=== PATIENT | female | born 1940 | race Caucasian/White ===

== ENCOUNTER → 2017-06-12 | Outpatient (CLI) | payer OTHER, MEDICARE | LOC: FIMAGING 18:33 | DX: M47.816 Spondylosis without myelopathy or radiculopathy, lumbar region (principal); M47.817 Spondylosis without myelopathy or radiculopathy, lumbosacral region; M17.0 Bilateral primary osteoarthritis of knee; M46.96 Unspecified inflammatory spondylopathy, lumbar region ==

== ENCOUNTER → 2017-07-27 | Outpatient (CLI) | payer OTHER, MEDICARE | LOC: FIMAGING 09:33 | PROVIDERS: ATTEND Internal Medicine | DX: Z12.31 Encounter for screening mammogram for malignant neoplasm of breast (principal) | CPT/HCPCS: G0202 ==

== ENCOUNTER → 2018-01-04 | Outpatient (CLI) | payer OTHER, MEDICARE | LOC: FIMAGING 11:41 | PROVIDERS: ATTEND Orthopaedic Surgery | DX: M17.12 Unilateral primary osteoarthritis, left knee (principal); K57.30 Diverticulosis of large intestine without perforation or abscess without bleeding ==

== ENCOUNTER 2018-01-31 06:05 | Observation (INO) | payer OTHER, MEDICARE ==
[2018-01-31] MEDS ORDERED: ACETAMINOPHEN 325 MG TAB PO ONE (06:17)
[2018-01-31] MEDS ORDERED: DEXAMETHASONE 4 MG/ML VIAL IVP ONE (06:17)
[2018-01-31] MEDS ORDERED: FAMOTIDINE 20 MG TAB PO ONE (06:17)
[2018-01-31] MEDS ORDERED: ceFAZolin 2 GM/DEXTROSE 100 ML IV ONE (06:17)
[2018-01-31] MEDS ORDERED: LR 1,000 ML IV ONE (06:19)
[2018-01-31] MEDS ORDERED: LIDOCAINE 1% 2 ML INJ ID PRN (06:19)
[2018-01-31] MEDS ORDERED: TRANEXAMIC ACID 3,000 MG/50 ML BAG IRR ONE (07:47)
--- NOTE | 2018-01-31 07:54 | PDANEPAE ---
ANE History of Present Illness here for TKA ANE Past Medical History - Cardiovascular History Hx Hypertension: No Hx Arrhythmias: No Hx Chest Pain: No Hx Coronary Artery / Peripheral Vascular Disease: No Hx CHF / Valvular Disease: No Hx Palpitations: No - Pulmonary History Hx COPD: No Hx Asthma/Reactive Airway Disease: No Hx Recent Upper Respiratory Infection: No Hx Oxygen in Use at Home: No Hx Sleep Apnea: No Sleep Apnea Screening Result - Last Documented: Negative - Neurologic History Hx Cerebrovascular Accident: No Hx Seizures: No Hx Dementia: No - Endocrine History Hx Diabetes: Yes Endocrine History Comment: on Metformin- last A1C 7.0 - Renal History Hx Renal Disorders: Yes Renal History Comment: UTI-tx w/antibx. Urgency-plans to take Myrbetriq. - Liver History Hx Hepatic Disorders: No - Neurological & Psychiatric Hx Hx Neurological and Psychiatric Disorders: No - Cancer History Hx Cancer: No - Congenital Disorder History Hx Congenital Disorders: No - GI History Hx Gastrointestinal Disorders: No - Other Health History Other Health History: OA -bilat knees/ L knee more painful. diuretic for water retention - Chronic Pain History Chronic Pain: Yes (L knee) - Surgical History Prior Surgeries: hernia repair. back sx/ disc problem ANE Review of Systems Review of Systems: - Exercise capacity METS (RN): 4 METS ANE Patient History - Allergies Allergies/Adverse Reactions: NSAIDS (Non-Steroidal Anti-Inflamma Allergy (Verified 01/31/18 06:48) Hives Penicillins Allergy (Verified 12/06/17 10:42) - Home Medications Home Medications: Aspirin [Aspirin 81mg (*)] 81 mg PO DAILY 12/06/17 [Last Taken 2 Weeks Ago ~] Cyanocobalamin [Vitamin B12 (*)] 1,000 mcg PO DAILY 12/06/17 [Last Taken 2 Weeks Ago ~01/17/18] Herbals/Supplements -Info Only 1 ea PO DAILY 12/06/17 [Last Taken 2 Weeks Ago ~ 01/17/18] Multivitamins [Multivitamin (*)] 1 each PO DAILY 12/06/17 [Last Taken 2 Weeks Ago ~01/17/18] Triamterene/Hydrochlorothiazid [Triamterene-Hctz 37.5-25 mg Tb] 1 each PO DAILY18 12/06/17 [Last Taken 01/29/18] Vitamin B Complex [Vitamin B Complex (OTC)] 1 each PO DAILY 12/06/17 [Last Taken 2 Weeks Ago ~01/17/18] metFORMIN SR [Glucophage XR 500 mg (*)] 500 mg PO DAILY18 12/06/17 [Last Taken 01/29/18] - NPO status NPO Since - Liquids (Date): 01/30/18 NPO Since - Liquids (Time): 19:00 NPO Since - Solids (Date): 01/30/18 NPO Since - Solids (Time): 19:00 - Smoking Hx Smoking Status: Former smoker ANE Labs/Vital Signs - Vital Signs Blood Pressure: 130/68 Heart Rate: 60 Respiratory Rate: 16 O2 Sat (%): 93 Height: 167.64 cm Weight: 78.925 kg ANE Physical Exam - Airway Neck exam: FROM Mallampati Score: Class 1 Mouth exam: normal dental/mouth exam - Pulmonary Pulmonary: no respiratory distress - ASA Status ASA Status: II ANE Anesthesia Plan Anesthesia Plan: spinal Regional Anesthesia: adductor canal FNB
[2018-01-31] MEDS ORDERED: MIDAZOLAM 2 MG/2 ML VIAL IVP ONE (07:55)
[2018-01-31] MEDS ORDERED: PROPOFOL/EMULSION 500 MG/50 ML BOTTLE IV ONE (08:07)
[2018-01-31] MEDS ORDERED: fentaNYL 100 MCG/2 ML INJ ONE (08:07)
[2018-01-31] MEDS ORDERED: TRANEXAMIC ACID 3,000 MG in NS (SYRINGE) 50 ML IRR ONE (08:15)
[2018-01-31] MEDS ORDERED: ROPIVACAINE 0.2% 80 MG, EPINEPHrine 0.2 MG in SYRINGE 0 ML IU ONE (08:15)
[2018-01-31] MEDS ORDERED: NALOXONE HCL 0.4 MG/ML INJ IVP PRN (08:39)
[2018-01-31] MEDS ORDERED: ALBUTEROL 3 ML DEYVIAL IH PRN (08:39)
[2018-01-31] MEDS ORDERED: fentaNYL 100 MCG/2 ML INJ IVP PRN (08:39)
[2018-01-31] MEDS ORDERED: ONDANSETRON 4 MG/2 ML VIAL IVP PRN ×2 (08:39→09:38)
[2018-01-31] MEDS ORDERED: DEXAMETHASONE 4 MG/ML VIAL IVP PRN (08:39)
[2018-01-31] MEDS ORDERED: BUPIVACAINE 0.25% 30 ML SDV ONE (08:47)
[2018-01-31] MEDS ORDERED: PROPOFOL 200 MG/20 ML VIAL ONE (09:08)
--- NOTE | 2018-01-31 09:26 | PDHPUP ---
History & Physical Update H&P update statement: This history and physical update is based on an assessment of the patient which was completed after admission or registration (within 24 hours), but prior to the surgery/procedure. H&P update: H&P reviewed & patient examined, no change in patient's condition since H&P completed
[2018-01-31] MEDS ORDERED: BISACODYL 10 MG SUPP PR PRN (09:38)
[2018-01-31] MEDS ORDERED: MAGNESIUM HYDROXIDE 30 ML UDCUP PO PRN (09:38)
[2018-01-31] MEDS ORDERED: PROMETHAZINE HCL 25 MG/ML INJ IVP PRN (09:38)
[2018-01-31] MEDS ORDERED: diphenhydrAMINE 25 MG CAP PO PRN (09:38)
[2018-01-31] MEDS ORDERED: LACTULOSE 20 GM/30 ML UDCUP PO PRN (09:38)
[2018-01-31] MEDS ORDERED: METOCLOPRAMIDE 10 MG/2 ML VIAL IVP PRN (09:38)
[2018-01-31] MEDS ORDERED: PROMETHAZINE HCL 25 MG SUPPR PR PRN (09:38)
[2018-01-31] MEDS ORDERED: TEMAZEPAM 15 MG CAP PO PRN (09:38)
[2018-01-31] MEDS ORDERED: DIPHENOXYLATE/ATROPINE LOMOTIL 1 TAB PO PRN (09:38)
--- NOTE | 2018-01-31 09:38 | POSTOPPROG ---
Post Op Note Date of Operation: 01/31/18 Surgeon: Emiliano Higgins Educational Technologist: shea higgins Anesthesiologist: dr. gr Anesthesia: Spinal Pre-op Diagnosis: left knee OA Post-op Diagnosis: same Indication: L knee pain Procedure: L TKA robot assisted, computer navigation. Sensor assisted as well Findings: severe knee OA Inf/Abcess present in the surg proc area at time of surgery?: No EBL: 50-100
[2018-01-31] MEDS ORDERED: D50W 25 GM/50 ML SYR IVP PRN (09:40)
[2018-01-31] MEDS ORDERED: LR 1,000 ML IV SCH (10:00)
--- NOTE | 2018-01-31 10:44 | POSTANESTH ---
Post Anesthetic Evaluation Cardiovascular Status: Normal, Stable Respiratory Status: Normal, Stable Level of Consciousness/Mental Status: Moderately Sleepy Pain Control: Adequate, Prn Tx Ordered Nausea/Vomiting Control: Adequate, Prn Tx Ordered Complications Possibly Related to Anesthesia: None Noted
[2018-01-31] MEDS: ACETAMINOPHEN 325 MG TAB PO SCH ×3 (12:31→23:07)
[2018-01-31] MEDS: INSULIN REGULAR HUMAN 100 UNIT/ML UNIT SC SCH ×3 (12:31→22:12)
[2018-01-31] MEDS: ceFAZolin 2 GM/DEXTROSE 100 ML IV SCH ×2 (14:02→22:12)
[2018-01-31] MEDS: oxyCODONE IR 5 MG TAB PO PRN ×3 (15:52→22:03)
[2018-01-31] MEDS: WARFARIN SODIUM 5 MG TAB PO SCH (15:52)
[2018-01-31] MEDS: metFORMIN SR 500 MG TAB PO SCH (17:36)
[2018-01-31] MEDS: TRIAMTERENE/HCTZ 37.5/25 1 EACH TAB PO SCH (17:38)
--- NOTE | 2018-01-31 18:42 | GOP ---
[f rep st] OPERATIVE REPORT DATE OF OPERATION: 01/31/2018 SURGEON: Tye Chapman MD MUSIC MIXER: GABRIELA Hartley ANESTHESIA: Spinal. PREOPERATIVE DIAGNOSIS: Left knee osteoarthritis. POSTOPERATIVE DIAGNOSIS: Left knee osteoarthritis. PROCEDURE PERFORMED: 1) Left total knee replacement with computer navigation, robotic assist. 2) intra-operative use of sensor device ([id number]) FINDINGS: Severe medial and patellofemoral osteoarthritis. ESTIMATED BLOOD LOSS: 30 cc. INDICATIONS: The patient is a 77-year-old female with severe and progressive pain and deformity of the left knee unresponsive to conservative care. The risks and benefits of surgical intervention were explained in detail. DESCRIPTION OF PROCEDURE: The patient was brought to the operative room and placed on the table in the supine position. Spinal anesthesia was induced without difficulty. A pneumatic tourniquet was applied about the left proximal thigh, and the leg was prepped and draped in a sterile fashion. The leg dent was applied. After exsanguination by elevation the tourniquet was inflated to 250 mmHg. Incision was made anterior medial from the tibial tuberosity to a point 2 cm proximal to the superior pole of the patella. Medial parapatellar arthrotomy was carried out from the superior pole of the patella and posteriorly in line with the fibers of the Type II VMO. The medial collateral ligament was elevated and the infrapatellar fat pad was resected. The patella was everted and the articular surface was excised. A 32 mm patellar button was placed. Attention was turned first to the distal aspect of the femur. After exposure of the femur, 2 half pins were placed for fixation of the femoral array. In a similar fashion, 2 pins were placed anteromedial on the tibia for fixation of the tibial array. External land marking and registration of the hip center was performed without difficulty. Internal femoral and tibial registration was carried out without difficulty and the femoral and tibial checkpoints were placed and verified for accuracy. Attention was turned to the femur. The foot print for the size 3 femoral component was cut with the saw using the [employer] robotic system and verified for accuracy against the CT based plan. In a similar fashion, the saw was used to cut the footprint for the size 4 tibial component using the ELIEL system and verified for accuracy against the CT based plan. The tibial articular surface was excised without difficulty, followed by the intercondylar box cut. The knee was extended and the remnants of the medial and lateral meniscus were excised. The posterior capsule was injected with ropivacaine, epinephrine. A size 4 tibial tray was positioned. Trial reduction was then carried out. There was excellent range of motion, alignment, and stability using the 4 x 9 mm polyethylene. All trials were then removed. The joint was thoroughly irrigated and carefully dried. The Press-Fit components were implanted. A Hunie kinematic sensor was used to evaluate joint balance and stability. The permanent 9 mm polyethylene was placed without difficulty. The tourniquet was deflated and all bleeders were coagulated. The wound was thoroughly irrigated and closed using interrupted sutures of 2-0 Vicryl for the joint capsule. The subcu was closed with 3-0 Vicryl and the skin with 4-0 Monocryl. Dermabond and Steri-Strips were applied followed by a compressive dressing. The patient was then moved from the operating room to the recovery room in good condition, having tolerated the procedure well. /[id number]/MODL MTDD
[2018-01-31] MEDS: ONDANSETRON DISINTEGRATING 4 MG TAB PO PRN (20:07)
[2018-01-31] MEDS: SENNOSIDES/DOCUSATE SODIUM TAB PO SCH (22:03)
[2018-01-31] MEDS: FAMOTIDINE 20 MG TAB PO SCH (22:03)
[2018-01-31] MEDS: CYCLOBENZAPRINE 10 MG TAB PO PRN (23:08)
[2018-02-01] MEDS: oxyCODONE IR 5 MG TAB PO PRN ×4 (03:46→17:26)
[2018-02-01] MEDS: ACETAMINOPHEN 325 MG TAB PO SCH ×5 (05:23→23:34)
[2018-02-01 05:51] LABS: INR 0.98 (0.83-1.16); PROTIME(PATIENT) 13.2 SEC (12.0-15.0)
[2018-02-01] MEDS: ENOXAPARIN 40 MG/0.4 ML SYR SC SCH (08:46)
[2018-02-01] MEDS: ONDANSETRON DISINTEGRATING 4 MG TAB PO PRN (08:46)
[2018-02-01] MEDS: CYCLOBENZAPRINE 10 MG TAB PO PRN ×2 (08:47→17:26)
[2018-02-01] MEDS: SENNOSIDES/DOCUSATE SODIUM TAB PO SCH ×2 (08:48→20:02)
[2018-02-01] MEDS: FAMOTIDINE 20 MG TAB PO SCH ×2 (08:48→20:02)
[2018-02-01] MEDS: INSULIN REGULAR HUMAN 100 UNIT/ML UNIT SC SCH ×3 (08:49→17:51)
[2018-02-01] MEDS: POLYETHYLENE GLYCOL 3350 17 GM PKT PO PRN (08:49)
--- NOTE | 2018-02-01 09:09 | SOAPPROG ---
SOAP Progress Note Assessment/Plan: Assessment: Patient is doing well POD 1 s/p L TKA Pain management: pain is well controlled on oral pain meds. VTE ppx: recommend coumadin and lovenox, cont JOEY and SCDs Anemia: level is expected initially postop. Asymptomatic. Continue to monitor D/c planning: d/c to home today pending release from PT Plan: 02/01/18 09:08 Subjective: Merlyn is doing well today, states flexeril alleviated spasms, denies SOB, chest pain and n/v Objective: Vital Signs Temp Pulse Resp BP Pulse Ox 37.3 C 54 L 14 114/54 L 95 02/01/18 07:55 02/01/18 07:55 02/01/18 07:55 02/01/18 07:55 02/01/18 07:55 Laboratory Results 02/01/18 05:25 02/01/18 05:25 01/31/18 02/01/18 02/02/18 05:59 05:59 05:59 Intake Total 3087 Output Total 2580 250 Balance 507 -250 PT 13.2 SEC (12.0-15.0) 02/01/18 05:25 INR 0.98 (0.83-1.16) 02/01/18 05:25 LLE; incision dressing is clean and dry, NVI, +pf/df ICD10 Worksheet Patient Problems: Problems Problem Status Onset Primary localized osteoarthritis of left knee Acute
[2018-02-01] MEDS: WARFARIN SODIUM 5 MG TAB PO SCH (17:27)
[2018-02-01] MEDS: metFORMIN SR 500 MG TAB PO SCH (17:27)
[2018-02-01] MEDS: TRIAMTERENE/HCTZ 37.5/25 1 EACH TAB PO SCH ×2 (17:53→20:00)
[2018-02-01] MEDS: traMADol 50 MG TAB PO SCH (20:01)
[2018-02-02] MEDS: INSULIN REGULAR HUMAN 100 UNIT/ML UNIT SC SCH ×3 (00:21→14:19)
[2018-02-02] MEDS: oxyCODONE IR 5 MG TAB PO PRN ×4 (00:46→10:37)
[2018-02-02] MEDS: CYCLOBENZAPRINE 10 MG TAB PO PRN ×2 (02:30→10:38)
[2018-02-02] MEDS: traMADol 50 MG TAB PO SCH ×3 (02:30→13:49)
[2018-02-02 06:27] LABS: INR 1.13 (0.83-1.16); PROTIME(PATIENT) 14.7 SEC (12.0-15.0)
[2018-02-02] MEDS: ACETAMINOPHEN 325 MG TAB PO SCH ×2 (06:42→13:50)
[2018-02-02 07:19] VITALS: BP 95/46
[2018-02-02] MEDS: FAMOTIDINE 20 MG TAB PO SCH (07:31)
[2018-02-02] MEDS: SENNOSIDES/DOCUSATE SODIUM TAB PO SCH (07:33)
[2018-02-02] MEDS: ENOXAPARIN 40 MG/0.4 ML SYR SC SCH (07:34)
[2018-02-02] MEDS: POLYETHYLENE GLYCOL 3350 17 GM PKT PO PRN (07:34)
--- NOTE | 2018-02-02 08:59 | SOAPPROG ---
SOAP Progress Note Assessment/Plan: Assessment: Patient is doing well POD 2 s/p L TKA Pain management: patient has had difficulty with pain control. Patient has not received all of the oral narcotic pain meds ordered for patient. Patient has liked IV morphine and has issues with lightheadedness when given IV morphine and 10mg oxycodone as expected with that much narcotics given at one time. Encouraged nurses to anticipate patient's pain med needs as patient has not received 10mg oxycodone IR every 3 hours as ordered. She has averaged closer to every 5-7 hours. For POD1 and POD 2, this is often not sufficient for pain control given at that interval. Added tramadol as needed for pain in between oxycodone dose. VTE ppx: recommend coumadin and lovenox, cont JOEY and SCDs Anemia: level is expected initially postop. Asymptomatic. Continue to monitor D/c planning: d/c to home today pending release from PT. Discussed option of SNF tomorrow if patient does not pass PT. Also discussed home health option with patient. Will order case management assistance in arranging care as patient is doing worse than anticipated working with PT and OT. Plan: 02/01/18 09:08 02/02/18 08:53 Subjective: Martin states severe pain overnight, slightly improved this morning. Patient states that she likes IV morphine. Denies SOB, chest pain and N/V. Objective: Vital Signs Temp Pulse Resp BP Pulse Ox 37.1 C 72 15 95/46 L 91 L 02/02/18 07:19 02/02/18 07:19 02/02/18 07:19 02/02/18 07:19 02/02/18 07:19 Laboratory Results 02/02/18 05:09 02/01/18 05:25 02/01/18 02/02/18 02/03/18 05:59 05:59 05:59 Intake Total 3087 1100 Output Total 2580 1150 Balance 507 -50 PT 14.7 SEC (12.0-15.0) 02/02/18 05:09 INR 1.13 (0.83-1.16) 02/02/18 05:09 incision dressing is clean and dry, NVI, swelling as expected POD 2. ICD10 Worksheet Patient Problems: Problems Problem Status Onset Primary localized osteoarthritis of left knee Acute
--- NOTE | 2018-02-02 11:55 | PDIAF ---
- Diagnosis Diagnosis: s/p TKA Code Status: Full Code - Medication Management Discharge Medications: Medications to Continue on Transfer Cyanocobalamin [Vitamin B12 (*)] 1,000 mcg PO DAILY 12/06/17 [Last Taken 2 Weeks Ago ~01/17/18] Herbals/Supplements -Info Only 1 ea PO DAILY 12/06/17 [Last Taken 2 Weeks Ago ~ 01/17/18] Multivitamins [Multivitamin (*)] 1 each PO DAILY 12/06/17 [Last Taken 2 Weeks Ago ~01/17/18] Triamterene/Hydrochlorothiazid [Triamterene-Hctz 37.5-25 mg Tb] 1 each PO DAILY18 12/06/17 [Last Taken 01/29/18] Vitamin B Complex [Vitamin B Complex (OTC)] 1 each PO DAILY 12/06/17 [Last Taken 2 Weeks Ago ~01/17/18] metFORMIN SR [Glucophage XR 500 mg (*)] 500 mg PO DAILY18 12/06/17 [Last Taken 01/29/18] Acetaminophen [Tylenol 325mg (*)] 650 mg PO Q6HRS tab 02/01/18 [Last Taken Unknown] Cyclobenzaprine [Flexeril 10 MG (*)] 10 mg PO Q8HRS PRN tab 02/01/18 [Last Taken Unknown] Enoxaparin [Lovenox 40 MG (*)] 40 mg SC DAILY syr 02/01/18 [Last Taken Unknown] Polyethylene Glycol 3350 [Miralax 17 gm (*)] 17 gm PO DAILY PRN pkt 02/01/18 [ Last Taken Unknown] Sennosides/Docusate Sodium [Senokot-S] 1 - 2 tab PO BID tab 02/01/18 [Last Taken Unknown] Warfarin Sodium [Coumadin 5MG (*)] 5 mg PO DAILY16 tab 02/01/18 [Last Taken Unknown] oxyCODONE IR [Oxycodone Ir (*)] 5 - 10 mg PO Q3HRS PRN tab 02/01/18 [Last Taken Unknown] Discharge Medications: Refer to the Discharge Home Medication list for PRN reason. - Orders Services needed: Home Care, Certified Barrel Loader, Physical Therapy Home Care Face to Face: I certify that this patient was under my care and that I had the required gbvy-dz-wzgl encounter meeting the encounter requirements on the discharge day. My findings support the fact that the patient is homebound as defined in Home Care Face to Face Continued: CMS Chapter 7 Medicare Benefits Manual 30.1.1 , The condition of the patient is such that there exists a normal inability to leave home and consequently, leaving home would require a considerable and taxing effort. Diet Recommendation: no restrictions on diet Diet Texture: Regular Texture Diet Additional Instructions: Joint Protocol-Knee Replacement Follow up with Dr. Krishna office as scheduled You received an adductor canal nerve block yesterday. It alleviates pain for approximately 30 hours. Once the numbness to your anterior alvarez wears off, your pain will increase. Start taking narcotics even low dose narcotic pain meds as the numbness decreases After surgery instructions: Coumadin 5mg by mouth once daily for 3 weeks (helps prevent blood clots) Lovenox subcutaneous injection, one injection once daily for 4 days PT/INR every Monday and morning while taking Coumadin, starting the first Monday after discharge from the hospital Wear thigh high JOEY hose on both legs during the daytime for 2 weeks (helps to prevent blood clots and decrease swelling in the surgical leg). It is ok to remove JOEY hose at night time to give your legs a break. It is common for swelling and bruising to occur in the entire surgical leg even extending to the foot, if concerned call Dr. Joyner office [phone] Elevate the surgical leg with the ankle above the hip several times a day. ~ Ideally anytime you are resting throughout the day. Attempt to keep the knee straight while elevating by placing pillows under the ankle instead of the knee to elevate. This may be painful, so please do as much as tolerated. ~This will help you achieve full knee extension. Use a walker for 7-14 days Start outpatient physical therapy in 7-10 days Wear an gene wrap on the knee for 3-4 days after surgery, then it is no longer needed Do exercises in the book 2-3 times a day Ice at least 3-5 times a day for 30 minutes each time, if not more often. ~~We also recommend using the ice machine before falling asleep to help with pain If you have further questions that are not addressed here, please look at the information packet handed to you at the preop appointment. ~Most will be answered on the FAQs, after surgery instructions and incision care pages. You may also call Dr. Krishna office with questions as well. *IF YOU HAVE A LIFE THREATENING EMERGENCY, CALL 911. FOR NON-LIFE THREATENING ISSUES, PLEASE CALL DR. KRISHNA OFFICE FIRST. A PHYSICIAN IS ENTRY LEVEL ASSISTANT MANAGER 20/03 Incision/Dressing Care: May shower tomorrow, please cover incision dressing (cantu one) with saran wrap or [id number] before showering as the incision dressing is water resistant, but not waterproof Keep the incision (cantu) dressing clean and dry. If the incision dressing gets soiled or wet underneath, change dressing to the dressing given to you by the hospital. (cantu dressing will turn black if drainage occurs) Remove incision dressing (cantu one) two weeks after surgery. ~Leave steri strips alone. ~They will fall off on their own. Do not have anyone else remove the incision dressing prior to the stated recommendation (2 weeks after surgery). ~If there are incision concerns, contact Dr. Joyner office. ~(Haritha or Dr. Chapman may remove earlier if concerns arise) If incision site (cantu dressing) has, call Dr. Joyner office, . ~ Haritha and Dr. Chapman may ask you to come into the office for further evaluation - Labs/Radiology PT/INR Date: 02/05/18 (recommend INR every Monday and morning. Call results to Alexandrea at [phone]) Call or Fax Lab and Imaging Results to: call results to Jordyn Chapman's office at [phone] - Follow Up Care Current Providers and Referrals: Kinjal Lemus MD [Primary Care Provider] - Haritha Chapman PA [Physician Bods Developer] - 02/22/18 8:00 am
--- NOTE | 2018-02-02 11:56 | PDFACE2FAC ---
Face to Face Encounter 1. I certify that this patient is under my care and that I, or a nurse practitioner or physician's tiler's assistant working with me, had a icly-bf-orid encounter that meets the physician hcza-yi-qswl encounter requirements with this patient on 02/02/18. 2. I certify that based on my findings, the following services are medically necessary home health services: [X Nursing] [X Physical Therapy] [ Speech-Language Pathology] 3. The medical condition and clinical findings that support the need for specialized skills, knowledge and judgement of the above services are: [s/p TKA must use FWW postop] 4. I certify this patient is homebound* because [the patient's condition restricts their ability to leave their home except with the assistance of another individual or the aid of a supportive device.] s/p TKA, limited ability to walk, must elevate and ice frequently I certify that this patient is confined to his/her home and needs intermittent senior care care, physical and/or speech therapy. This patient is under my care and I have authorized home health services. * Homebound is defined by Medicare as follows: absences from home require considerable and tacking effort and or for medical reasons or mu-ism services or are infrequent or of short duration when for other reasons*.
--- NOTE | 2018-02-07 02:14 | GDS ---
[f rep st] DISCHARGE SUMMARY ADMISSION DIAGNOSIS: Left knee osteoarthritis. DISCHARGE DIAGNOSIS: Left knee osteoarthritis. PROCEDURE: Left total knee arthroplasty, robotic-assisted, computer navigation. VTE PROPHYLAXIS: Recommend Coumadin and Lovenox. BRIEF DESCRIPTION OF HOSPITAL STAY: Patient was admitted for an elective joint arthroplasty. The pa radha tolerated the procedure well and has passed physical therapy. The patient was given appropriat e antibiotic prophylaxis and venous thromboembolism prophylaxis. The patient's pain was well control led on oral pain medication, patient was holding down food, and had urinated. Decision was made to d ischarge the patient. The patient was given post-operative prescriptions pre-operatively. PLAN: To follow up as scheduled with Dr. Chapman at location in 2 to 3 weeks. /[id number]/MODL
== END 2018-02-02 14:10 | disposition home health service (06) ==
LOC: F3N 06:05
PROVIDERS: ADMIT Orthopaedic Surgery; ATTEND Orthopaedic Surgery
PROC: 0SRD06Z Replacement of Left Knee Joint with Oxidized Zirconium on Polyethylene Synthetic Substitute, Open Approach (ICD-10-PCS; principal; 2018-01-31 08:15)
PROC: 8E0Y0CZ Robotic Assisted Procedure of Lower Extremity, Open Approach (ICD-10-PCS; principal; 2018-01-31 08:15)
PROC: 8E0YXBZ Computer Assisted Procedure of Lower Extremity (ICD-10-PCS; principal; 2018-01-31 08:15)
DX: M17.12 Unilateral primary osteoarthritis, left knee (principal); Z87.440 Personal history of urinary (tract) infections; Z79.84 Long term (current) use of oral hypoglycemic drugs; Z88.0 Allergy status to penicillin
CPT/HCPCS: 0396T; 27447; 73560; 88311; 97110; 97116; 97161; 97165; 97530; 97535; C1776; G8978; G8979; G8987; G8988; J0171; J0690; J1100; J1650; J1815; J2250; J2270; J2704; J2795; J3010

== ENCOUNTER 2018-02-28 18:45 | Emergency (ER) | payer OTHER, MEDICARE ==
--- NOTE | 2018-02-28 18:55 | EDPHY ---
H & P Stated Complaint: Tripped/fell;inj to L wrist/forearm;also persistent vertigo since inpt surg Time Seen by Provider: 02/28/18 18:54 - Personal History Current Tetanus Diphtheria and Acellular Pertussis (TDAP): Yes - Medical/Surgical History Hx Diabetes: Yes Other PMH: DM type 2, back surgery, hernia surgery. L TKR January 2018 - Social History Smoking Status: Former smoker Constitutional: Initial Vital Signs Temperature (C) 36.5 C 02/28/18 18:51 Heart Rate 85 02/28/18 18:51 Respiratory Rate 18 02/28/18 18:51 Blood Pressure 136/69 H 02/28/18 18:51 O2 Sat (%) 97 02/28/18 18:51 O2 Delivery Mode [Post Non-Rebreather Mask Procedure 4th] O2 Delivery Mode [Post Non-Rebreather Mask Procedure 3rd] O2 Delivery Mode [Post Non-Rebreather Mask Procedure 2nd] O2 Delivery Mode [Post Non-Rebreather Mask Procedure 1st] O2 Delivery Mode [Procedural Non-Rebreather Mask 3rd] O2 Delivery Mode [Procedural Non-Rebreather Mask 2nd] O2 Delivery Mode [Procedural Non-Rebreather Mask 1st] O2 Delivery Mode [.Immediate Non-Rebreather Mask Pre-Procedure] O2 Delivery Mode Room Air O2 (L/minute) [Post Procedure 6 3rd] O2 (L/minute) [Post Procedure 10 2nd] O2 (L/minute) [Post Procedure 10 1st] O2 (L/minute) [Procedural 3rd] 15 O2 (L/minute) [Procedural 2nd] 15 O2 (L/minute) [Procedural 1st] 15 O2 (L/minute) [.Immediate Pre- 15 Procedure] Allergies/Adverse Reactions: NSAIDS (Non-Steroidal Anti-Inflamma Allergy (Intermediate, Verified 02/28/18 18: 50) Hives Penicillins Allergy (Intermediate, Verified 02/28/18 18:50) Hives Home Medications: Medication Instructions Recorded Triamterene/Hydrochlorothiazid 1 each PO DAILY18 12/06/17 [Triamterene-Hctz 37.5-25 mg Tb] metFORMIN SR [Glucophage XR 500 mg 500 mg PO DAILY18 12/06/17 (*)] Medical Decision Making - Diagnostics Imaging Results: Imaging Impressions Wrist X-Ray 02/28/18 18:53 Impression: Comminuted displaced and angulated intra-articular fracture of the distal left radius with associated ulnar styloid fracture. Wrist X-Ray 02/28/18 19:38 Impression: Decrease in angulation of the comminuted and displaced intra- articular fracture of the left humerus with a splint in place. Imaging: Discussed imaging studies w/ call center rn Radiologist, I viewed and interpreted images myself ED Course/Re-evaluation: CHIEF COMPLAINT: Left wrist injury HISTORY OF PRESENT ILLNESS: The patient is a 77 y/o female with a history of type 2 diabetes and a left knee replacement complaining of left wrist pain secondary to falling today. She was stepping up onto her patio when she lost her balance and fell backwards landing on her left wrist. She believes the wrist is deformed but there was no bleed. Denies hitting her head or loss of consciousness. Denies chest pain, shortness of breath, abdominal pain, urinary or bowel complaints, numbness, paresthesias, fever. REVIEW OF SYSTEMS: A 10 point review of systems was performed and is negative with the exception of the elements mentioned in the history of present illness. PHYSICAL EXAM: HR, BP, O2 Sat, RR. Temp noted General Appearance: Alert, well hydrated, appropriate, and non-toxic appearing. Head: Atraumatic without scalp tenderness or obvious injury Eyes: Pupils equal, round, reactive to light and accommodation, EOMI, no trauma , no injection. Ears: Clear bilaterally, no perforation, normal landmarks Nose: Atraumatic, no rhinorrhea, clear. Throat: There is no erythema or exudates, no lesions, normal tonsils, mucus membranes moist. Neck: Supple, nontender, no lymphadenopathy. Respiratory: No retractions, no distress, no wheezes, and no accessory muscle use. Lungs are clear to auscultation bilaterally. Cardiovascular: Regular rate and rhythm, no murmurs, rubs, or gallops. Bilateral carotid, radial, dorsalis pedis, and posterior tibial pulses intact. Good capillary refill all extremities. Gastrointestinal: Abdomen is soft, nontender, non-distended, no masses, no rebound, no guarding, no peritoneal signs. Musculoskeletal: Deformed closed left wrist, neurovascularly intact. Neurological: Alert, appropriate, and interactive. The patient has normal DTRs and non-focal cranial nerves, motor, sensory, and cerebellar exam. Skin: No rashes, good turgor, no nodules on palpation. Past medical history: Type 2 diabetes Past surgical history: Back surgery, hernia surgery, left knee replacement ( January 2018) Family history: Denies Social history: at bedside, lives in [place], retired DIAGNOSTICS/PROCEDURES/CRITICAL CARE TIME: Left wrist x-ray: Comminuted distal radius and ulnar styloid fracture Procedure: Conscious sedation. Indication: Left wrist fracture The patient is an appropriate candidate to tolerate procedural sedation. The patient's vitals signs and mental status are appropriate. The risks, benefits and alternatives of the sedation were discussed with the patient. The patient is ASA classification 1. The patient's Mallampati airway score was 1 and the patient did meet the 3-3-2 airway measurements. A time out was completed. The patient was sedated with 30mg IV Propofol and 30mg IV Ketamine. The patient was monitored with continuous pulse oximetry, classroom monitor and end tidal CO2. There were no complications and no significant hypoxemia. I performed both the sedation and the procedure. The total time I spent at the bedside during the procedural sedation was 20 minutes. The patient was examined after the procedural sedation and has returned to their pre-sedation baseline with normal vital signs and a normal examination. Procedure: Reduction of comminuted distal radius and ulnar styloid fracture Time-out completed immediately before the procedure. IV established. O2 administered. Placed on pulse oximeter and ETCO2 monitor. Neurovascular exam intact pre-procedure. Given 30mg IV Propofol and 30mg IV Ketamine for pain and sedation. The left comminuted distal radius and ulnar styloid fracture was reduced using traction as well as dorsal and ventral pressure. Reassessed post- procedure. Neurovascular status intact-Normal Motor and sensory exam. Exam indicated reduction. Confirmed reduction on X-ray. Splint applied by the tech. The procedure was performed by myself, Dr. Winchester. DIFFERENTIAL DIAGNOSIS: The differential diagnosis for the patient's wrist injury included but was not limited to fracture, ligamentous injury, contusion, muscular strain. MEDICAL DECISION MAKING: The patient is a 77 y/o female with a history of type 2 diabetes and a left knee replacement presenting with left wrist pain secondary to falling today. On exam she has a closed, deformed left wrist that is neurovascularly intact. Left wrist x-ray ordered. She is declining pain medications at this time. 1913: I reviewed patient's left wrist x-ray which reveals a fracture. 1914: Reassessed patient and discussed imaging studies. She is comfortable with plan for conscious sedation. 1919: Conscious sedation and fracture reduction started. 1927: 30mg IV Ketamine given 1928: 30mg IV Propofol given 1932: Additional 50mg IV Ketamine given 1933: Additional 10mg IV Propofol given 1945: Patient's reduction completed, she is not in pain right now. 2006: Reassessed patient, she continues to wake up from sedation and remains with little pain. I have advised her to follow up with an orthopedic surgeon regarding the comminuted fracture. Return precautions provided; patient is comfortable with this plan. - Data Points Medications Given: Discontinued Medications Ketamine HCl (Ketamine) 80 mg IVP EDNOW ONE Stop: 02/28/18 20:05 Last Admin: 02/28/18 20:07 Dose: 80 mg Propofol (Diprivan) 40 mg IVP EDNOW ONE Stop: 02/28/18 20:05 Last Admin: 02/28/18 20:06 Dose: 40 mg Departure - Departure Disposition: Home, Routine, Self-Care Clinical Impression: Left wrist fracture Qualifiers: Encounter type: initial encounter Fracture type: closed Qualified Code(s): S62.102A - Fracture of unspecified carpal bone, left wrist, initial encounter for closed fracture Displaced comminuted fracture of shaft of left radius Qualifiers: Encounter type: initial encounter Fracture type: closed Qualified Code(s): S52.352A - Displaced comminuted fracture of shaft of radius, left arm, initial encounter for closed fracture Condition: Good Instructions: Wrist Injury (ED), Wrist Fracture in Adults (ED) Additional Instructions: 1. Rest, ice, elevation. 2. Follow up with an orthopedic surgeon within one week. 3. Return to the emergency department for worsening pain, swelling, numbness, weakness or other concerns. 4. Wear splint at all times until reevaluation. Referrals: Kinjal Lemus MD [Primary Care Provider] - As per Instructions Maximo Bernard MD [Medical Doctor] - As per Instructions Report Scribed for: Geovanny Winchester Report Scribed by: Rubi Parker Date of Report: 02/28/18 Time of Report: 18:56
[2018-02-28] MEDS ORDERED: KETAMINE 200 MG/20 ML VIAL ONE (19:14)
[2018-02-28] MEDS ORDERED: PROPOFOL 200 MG/20 ML VIAL ONE (19:14)
[2018-02-28] MEDS ORDERED: PROPOFOL 200 MG/20 ML VIAL IVP ONE (20:04)
[2018-02-28] MEDS ORDERED: KETAMINE 500 MG/10 ML VIAL IVP ONE (20:04)
[2018-02-28] MEDS ORDERED: ONDANSETRON DISINTEGRATING 4 MG TAB ONE (20:52)
[2018-02-28 21:06] VITALS: BP 156/80
== END 2018-02-28 21:07 | disposition home or self-care (01) ==
PROC: 0PSJXZZ Reposition Left Radius, External Approach (ICD-10-PCS; principal; 2018-02-28)
DX: S52.572A Other intraarticular fracture of lower end of left radius, initial encounter for closed fracture (principal); E11.9 Type 2 diabetes mellitus without complications; S52.612A Displaced fracture of left ulna styloid process, initial encounter for closed fracture; Z87.891 Personal history of nicotine dependence; Z79.84 Long term (current) use of oral hypoglycemic drugs; W01.0XXA Fall on same level from slipping, tripping and stumbling without subsequent striking against object, initial encounter; Y92.007 Garden or yard of unspecified non-institutional (private) residence as the place of occurrence of the external cause; Y99.8 Other external cause status; Y93.89 Activity, other specified
CPT/HCPCS: 25605; 73100; 73110; 99152; 99285; A4565; J2704

== ENCOUNTER → 2018-10-23 | Outpatient (CLI) | payer OTHER, MEDICARE | LOC: FIMAGING 12:54 | PROVIDERS: ATTEND Internal Medicine | DX: Z12.31 Encounter for screening mammogram for malignant neoplasm of breast (principal) ==